=== PATIENT | male | born 1955 | race Caucasian/White ===

== ENCOUNTER 2025-01-20 20:09 | Emergency (ER) | payer MEDICARE, BC, SELFPAY ==
[2025-01-20] VITALS (7 sets, daily range): BP systolic 108–125; BP diastolic 64–79; PULSE 85–112; RESP 16–20; TEMP 36.6; O2SAT 97–100; BMI 30.4
--- NOTE | 2025-01-20 20:14 | DI.CT.S_ITS ---
PROCEDURE: CT CERVICAL SPINE WO CON INDICATIONS: fall, etoh, hematoma head TECHNIQUE: Noncontrast 3 mm thick sections acquired from the skull base to the T4 level. Sagittal and coronal reformats were then constructed. For radiation dose reduction, the following was used: automated exposure control, adjustment of mA and/or kV according to patient size. COMPARISON: [facility], CR, XR CHEST 1V, 01/20/2025, 20:22. [facility], CT, CT HEAD/BRAIN WO CON, 01/20/2025, 20:20. FINDINGS: Image quality: This examination is limited by involuntary motion artifact. Images are repeated, with some improvement. This examination is somewhat limited by quantum mottle artifact. Bones: No fractures or dislocations. Visualized superior ribs are intact. Focal degenerative change is seen involving the C1-C2 interface anteriorly. There is a degree of fusion at C2-C3, involving the vertebral bodies as well as the facet joints. There is moderate disc space narrowing seen at C3-C4 and at C4-C5. There is mild disc space narrowing seen at C5-C6. At least moderate disc space narrowing can be seen at C6-C7. Soft tissues: Prevertebral soft tissues are normal in thickness. No paravertebral hematomas. No apical pneumothoraces. IMPRESSION: No displaced fracture or traumatic subluxation. Levels of significant cervical spine degenerative change can be seen. Dictated by: Tyrone Russell M.D. on 01/20/2025 at 19:55 Approved by: Tyrone Russell M.D. on 01/20/2025 at 19:57
--- NOTE | 2025-01-20 20:14 | DI.RAD.S_ITS ---
PROCEDURE: XR CHEST 1V INDICATIONS: fall, etoh, hematoma head TECHNIQUE: One view of the chest was acquired. COMPARISON: [facility], CT, CT HEAD/BRAIN WO [facility], 01/20/2025, 20:20. [facility], CT, CT CERVICAL SPINE WO [facility], 01/20/2025, 20:20. FINDINGS: Surgical changes and devices: None. Lungs and pleura: An incomplete inspiratory result is noted, causing a crowded appearance to the lung markings. No focal infiltrates are seen. No pneumothorax or significant pleural effusions are seen. Mediastinum: Mediastinal contours appear normal. Heart size is normal. Bones and chest wall: No suspicious bony lesions. Age-appropriate bony degenerative changes are seen. Overlying soft tissues appear unremarkable. IMPRESSION: Limited portable chest examination, without a significant cardiopulmonary abnormality identified. Dictated by: Tyrone Russell M.D. on 01/20/2025 at 19:58 Approved by: Tyrone Russell M.D. on 01/20/2025 at 19:58
--- NOTE | 2025-01-20 20:14 | DI.CT.S_ITS ---
PROCEDURE: CT HEAD/BRAIN WO CON INDICATIONS: fall, etoh, hematoma head TECHNIQUE: Noncontrast 4.5 mm thick angled axial sections acquired from the foramen magnum to the vertex, with coronal and sagittal reformats. For radiation dose reduction, the following was used: automated exposure control, adjustment of mA and/or kV according to patient size. COMPARISON: [facility], CR, XR CHEST 1V, 01/20/2025, 20:22. [facility], CT, CT CERVICAL SPINE WO CON, 01/20/2025, 20:20. FINDINGS: Image quality: Diagnostic. CSF spaces: Basal cisterns are patent. No extra-axial fluid collections. The ventricles are symmetric in size and shape. Brain: No intracranial bleeds or masses. There is cerebral volume loss for age, with resultant ventricular and sulcal prominence. There are periventricular and deep white matter chronic small vessel ischemic changes. There is intracranial internal carotid artery atherosclerosis. Skull and face: There is left forehead scalp hematoma seen. No associated calvarial fracture can be seen. Calvarium and visualized facial bones appear intact, without suspicious lesions. Sinuses: Focal left maxillary sinus disease can be seen, with remote appearing dilation of the medial wall of the left maxillary sinus. Milder mucosal thickening can be seen elsewhere within the paranasal sinuses. No abnormal fluid is seen within the mastoid air cells. IMPRESSION: Left forehead scalp hematoma. No associated fracture is seen. No acute intracranial hemorrhage is seen. No acute intracranial process is seen. Focal left maxillary sinus disease noted. Dictated by: Tyrone Russell M.D. on 01/20/2025 at 19:46 Approved by: Tyrone Russell M.D. on 01/20/2025 at 19:47
--- NOTE | 2025-01-20 20:15 | ED_ITS ---
HPI - Trauma General Chief Complaint: Trauma Stated Complaint: fall, altered Time Seen by Provider: 01/20/25 22:03 Source: patient, EMS, RN notes reviewed and old records reviewed Mode of arrival: EMS Limitations: no limitations History of Present Illness HPI narrative: 67-year-old male with a history of insulin-dependent diabetes on long-acting insulin in the morning, prior back surgery and prior bariatric surgery who presents with alcohol intoxication. Patient has been and a local tavern has been cut off and was ambulating back to his hotel when had a fall patient hit his head. Does have a goose egg. He does not appear intoxicated. He was alert and conversant. Patient notes he has a little bit of a headache and a goose egg on the left. He denies any pain or injuries elsewhere. No neck pain, no chest pain or shortness of breath. No abdominal back or flank pain. No back pain. No numbness tingling or weakness. He was not had any nausea or vomiting. No loss of bowel or bladder control. Patient does not take any aspirin or other anticoagulants. States he takes long-acting insulin in the morning. States he has had prior lumbar laminectomy and prior bariatric surgery. No regular tobacco, drinks 2-4 alcoholic drinks daily but denies any withdrawal symptoms when he does not drink, denies any other recreational drugs. Patient is visiting in the area and staying at a hotel by himself. Related Data Allergies Allergy/AdvReac Type Severity Reaction Status Date / Time No Known Drug Allergies Allergy Verified 01/20/25 20:36 Review of Systems Review of Systems ROS Unobtainable: All systems reviewed & are unremarkable except as noted in HPI and below Exam Narrative Exam Narrative: GEN: Patient appears in mild distress. HEAD: Patient has a left frontal hematoma, has several small abrasions but no lacerations to the forehead in the left bridge of his nose, no raccoon/Pathak sign. NECK: Nontender, painless range of motion, trachea midline Positive Nexus criteria, negative line tenderness, distracting injury, altered mental status, neuro deficit, positive recent EtOH. EYES: PERRLA, EOMI ENT: External inspection normal, trachea is midline, TM's are normal no hemotypanum, Nares are clear, no septal hematoma, no dental or oral injury, airway is normal and with normal occlusion, No bony tenderness RESP: Chest is nontender and has symmetric movement, no ecchymosis, breath sounds are normal no crackles, wheezes or rales CVS: Heart sounds are normal, no murmur noted, No JVD. ABG/GI: Nontender, soft, normal bowel sounds, no distention, no organomegaly, pelvic rock is negative NEURO: Oriented AOx3, neuro is grossly intact, sensation and motor is normal all 4 extremities moving, cranial nerves II through XII are intact, GCS is 14, patient answers all questions appropriately but does appear intoxicated. PSYCH: Normal mood and affect SKIN: Patient has some abrasions on his upper extremity, warm and dry, no crepitus and without decubitus BACK: No CVA tenderness, no vertebral tenderness, no step-off's, no crepitus EXT: Atraumatic, hips are nontender, no pedal edema, normal color and temperature, normal range of motion of extremities with normal tendon exam, 2+ pulses in all four extremities Initial Vital Signs Initial Vital Signs: Vital Signs Temperature 97.9 F 01/20/25 20:08 Pulse Rate 100 H 01/20/25 20:08 Respiratory Rate 18 01/20/25 20:08 Blood Pressure 116/65 01/20/25 20:08 Pulse Oximetry 100 01/20/25 20:08 Oxygen Delivery Method Room Air 01/20/25 20:[address] [place] [address] Head Rule Age <16 years old: No Patient on blood thinners: No Seizure after injury: No Exclusion: Patient NOT Excluded, Proceed to next steps GCS < 15 at 2 hr post trauma: No Suspected open or depressed skull fracture: No Any sign of basilar skull fracture (hemotympanum, raccoon eyes, Pathak's sign, CSF galindo-/rhinorrhea): No Two or more episodes of vomiting: No Age greater or equal to 65 years: Yes Retrograde amnesia to the event greater or equal to 30 min: No Dangerous Mechanism (pedestrian vs. mv, occupant ejected from mv, fall from >3 ft or > 5 stairs): No Recommendation: Consider CT. The [place] CT Rule cannot rule out need for Imaging. GCS Phelps coma scale eye opening: Spontaneous Vladislav coma scale verbal response: Orientated Vladislav coma scale motor response: Obey commands Vladislav coma scale total score: 15 Nexus Score for C-Spine Focal Neurologic deficit present: No Midline spinal tenderness present: No Altered level of conciousness present: Yes (Alcohol intoxication) Intoxication present: Yes Distracting Injury Present: No Nexus Criteria for C-spine: 2 Course Orders Ordered: Discontinued Medications Diphtheria/Tetanus/Acell Pertussis (Tet,Diph,Pertuss(Acell),Vac/Pf 0.5 Ml Syringe) 0.5 ml IM .ONCE ONE Stop: 01/20/25 20:15 Last Admin: 01/20/25 20:37 Dose: 0.5 ml Documented By: TAI Vital Signs Vital signs: Vital Signs - 8 hr 01/20/25 20:08 01/20/25 20:12 01/20/25 20:36 Temperature 97.9 F Pulse Rate 100 H 100 H 91 H Respiratory Rate 18 20 Blood Pressure 116/65 116/65 125/74 Pulse Oximetry 100 100 100 Oxygen Delivery Method Room Air 01/20/25 21:00 01/20/25 21:30 01/20/25 21:30 Temperature Pulse Rate Respiratory Rate Blood Pressure 111/79 108/65 Pulse Oximetry 97 99 Oxygen Delivery Method MDM - Trauma Lab Data Labs: Lab Results 01/20/25 Range/Units 21:30 Ur Bilirubin Confirm Negative (Negative) Urine RBC None seen (0-5/HPF) Urine WBC None seen (0-5/HPF) Ur Squamous Epith Cells None seen (0-5/HPF) Urine Bacteria None seen (None) Ur Culture Indicated? Cult not indicated Vol Urine Centrifuged 10ml (spun) Point of Care Testing Glucose POC 216 Urine Dip Bedside Urine Glucose Negative Bedside Urine Bilirubin + 1 Bedside Urine Ketone ++ 40 Urine Specific [place] 1.010 Bedside Urine Occult Blood - Negative Bedside Urine pH 6.5 Bedside Urine Protein + 30 Bedside Urine Urobilinogen +/- 1mg Bedside Urine Nitrite - Negative Bedside Urine Leukocytes - Negative Esterase [facility] Narrative Medical decision making narrative: 67-year-old male was recently at a bar intoxicated has been cut off was amb ulating back and had fall does have a hematoma he thought that he was at his hotel but per EMS was not actually there yet. Does have a hematoma does not appear to be intoxicated consistent with a his history. We will obtain head CT and C-spine, chest x-ray and glucose is patient is a diabetic. Patient was cells has no other complaints currently. Tetanus was updated. Vitals showed no tachycardia or hypotension. Head CT left forehead scalp hematoma no fracture no acute intracranial hemorrhage no acute intracranial process. CT C-spine, no displaced fracture or traumatic subluxation can even levels of significant cervical spine degenerative changes. Chest x-ray is negative Glucose was 130s. Patient's gait has improved here in the department. He is alert, answer questions appropriately as time knows where he was, the year, month and day. He is requesting to be discharged back to his hotel. Is asking if he can take a taxi cab. Patient has ambulated in the department without any issue. Mentation appears to be improving over time and felt appropriate for discharge. Discharge Plan Departure Patient Disposition: Home Clinical Impression: Traumatic hematoma of forehead, Abrasion of face and extremities Instructions: Closed Head Injury Activity Restrictions/Additional Instructions: Please follow up if you have any persistent symptoms. You had had imaging of your head, cervical spine and a chest x-ray you have a hematoma on your forehead but no other major fractures or intracranial bleeding. Your tetanus was updated today. Please return if you have new or worsening symptoms, severe headaches, changes to mentation, vomiting, difficulty with movement or ambulation or other new or concerning changes. Stand Alone Forms: Patient Portal/API/Survey
[2025-01-20] MEDS: TET,DIPH,PERTUSS(ACELL),VAC/PF 0.5 ML SYRINGE IM (20:37)
[2025-01-20 21:56] LABS: Bacteria Urine None Seen; Culture Indicated Urine Cult Not Indicated; Ictotest Urine Negative (Negative); RBC Urine None Seen (0-5/HPF); Squamous Epithelial Cell Urine None Seen (0-5/HPF); Urine Volume 10mL (spun); WBC Urine None Seen (0-5/HPF)
== END 2025-01-20 22:44 | disposition home or self-care (01) ==
PROVIDERS: Emergency Provider Emergency Medicine
DX: S00.83XA Contusion of other part of head, initial encounter (principal); S00.81XA Abrasion of other part of head, initial encounter; S40.819A Abrasion of unspecified upper arm, initial encounter; W18.30XA Fall on same level, unspecified, initial encounter; Z23 Encounter for immunization; F10.129 Alcohol abuse with intoxication, unspecified; Z98.84 Bariatric surgery status
CPT/HCPCS: 70450; 71045; 72125; 81003; 81015; 87086; 90471; 99284; 90715